=== PATIENT | male | born 1955 | race Caucasian/White ===

== ENCOUNTER 2016-11-24 08:47 | Inpatient (IN) | payer MEDICARE, BC ==
[2016-11-21 16:12] VITALS: BMI 28.2
[2016-11-24] VITALS (19 sets, daily range): BP systolic 118–145; BP diastolic 59–77; PULSE 73–96; RESP 6–73; Ht 170.2 cm; Wt 80.6 kg
[~2016-11-24] VITALS: Ht 170.2 cm; Wt 80.6 kg
[~2016-11-24 08:47] MED LIST: ATOR40TA68 PO; GABA300C PO; LISI10TA2 PO; METF500T4 PO
[2016-11-24] MEDS ORDERED: CEFAZOLIN 2 GM/50 ML (PMX) 50 ML IVPB SCH (09:30)
[2016-11-24] MEDS ORDERED: LACTATED RINGER'S 1,000 ML IV* SCH (09:30)
[2016-11-24] MEDS ORDERED: LIDOCAINE 2%/EPI 30 ML INJ ONE (11:18)
[2016-11-24] MEDS ORDERED: GELATIN SIZE 100 SPONGE ONE (11:18)
[2016-11-24] MEDS ORDERED: POLYMYXIN/BACITRACIN 1L IRRIG ONE (11:18)
[2016-11-24] MEDS ORDERED: ROCURONIUM 50 MG INJ ONE (11:35)
[2016-11-24] MEDS ORDERED: PROPOFOL 20 ML ONE (11:35)
[2016-11-24] MEDS ORDERED: SUCCINYLCHOLINE CHLORIDE 100 MG/5 ML SYG IV ONE (11:35)
[2016-11-24] MEDS ORDERED: MIDAZOLAM 1 MG/ML 2 ML INJ ONE (11:36)
[2016-11-24] MEDS ORDERED: HYDROmorphONE 2 MG/ML SYG ONE (11:36)
[2016-11-24] MEDS ORDERED: METOCLOPRAMIDE 10 MG INJ ONE (11:36)
--- NOTE | 2016-11-24 11:39 | HPN ---
Date/Time of Note Date/Time of Note DATE: 11/24/16 TIME: 11:39 Interval H&P Admission Note Pt. seen H&P reviewed: No system changes ADRIEL TREJO MD Nov 24, 2016 11:39
[2016-11-24] MEDS ORDERED: CEFAZOLIN 1 GM INJ ONE (11:44)
[2016-11-24] MEDS ORDERED: THROMBIN 5000 UNIT VIAL ONE ×2 (12:43→14:47)
[2016-11-24] MEDS ORDERED: EPHEDrine SULFATE 50 MG/5 ML SYG ONE (15:15)
[2016-11-24] MEDS ORDERED: METOCLOPRAMIDE 10 MG INJ IV PRN (15:30)
[2016-11-24] MEDS ORDERED: HYDROCODONE/APAP (5/325) TAB PO PRN ×3 (15:30→22:00)
[2016-11-24] MEDS ORDERED: PROCHLORPERAZINE 10 MG TAB PO PRN (15:30)
[2016-11-24] MEDS ORDERED: HYDROmorphONE (0.2 MG/ML) 10ML SYG IV PRN ×3 (15:30)
[2016-11-24] MEDS ORDERED: OXYCODONE/ACETAMINOPHEN (5/325) TAB PO PRN ×2 (15:30)
[2016-11-24] MEDS ORDERED: NALOXONE (0.4 MG/ML) INJ IV PRN (15:30)
[2016-11-24] MEDS ORDERED: MEPERIDINE 25 MG INJ IV PRN (15:30)
[2016-11-24] MEDS ORDERED: HYDROmorphONE 1 MG/ML SYG IV PRN ×3 (15:30→22:00)
[2016-11-24] MEDS ORDERED: ONDANSETRON 4 MG INJ IV PRN ×2 (15:30)
[2016-11-24] MEDS ORDERED: DIPHENHYDRAMINE 50 MG INJ IV PRN (15:30)
[2016-11-24] MEDS ORDERED: NACL 0.9% 3 ML SYG IV SCH (15:30)
--- NOTE | 2016-11-24 15:54 | OPR ---
Date/Time of Note Date/Time of Note DATE: 11/24/16 TIME: 15:44 Operative Report Free Text/Dictation DATE OF OPERATION: 11/24/2016 PREOPERATIVE DIAGNOSES: 1. Left sided L4-L5 spinal stenosis with L5 radiculopathy 2. Left sided L5-S1 spinal stenosis with S1 radiculopathy POSTOPERATIVE DIAGNOSES: 1. Left sided L4-L5 lateral recess stenosis with L5 radiculopathy 2. Left sided L5-S1 lateral recess stenosis with S1 radiculopathy OPERATION PERFORMED: 1. Left L4-L5 yumiko-laminectomy, medial facetectomy, and foraminotomy 2. Left L5-S1 yumiko-laminectomy, medial facetectomy, and foraminotomy SURGEON: Adriel Trejo MD DIGITAL MEASUREMENT ADVISOR: Zev Martinez MD ANESTHESIA: General endotracheal ESTIMATED BLOOD LOSS: 150 mL SURGICAL INDICATION: The patient is a 61 year-old male who presents with a several year history of worsening left lower extremity pain and weakness with left sided L5 and S1 radiculopathy. He was found to have left sided lateral recess stenosis at L4-L5 and L5-S1 which correlated well with his symptoms. The patient had failed conservative treatment. Risks, benefits, and alternatives to a left sided L5-S1 and L4-5 microdecompression were explained to the patient and they wished to proceed. Risks explained included but were not exclusive of bleeding, infection, cauda equina syndrome, nerve injury, dural tear, iatrogenic instability requiring fusion, recurrent disc herniation, fracture, vascular injury, bowel injury, stroke, heart attack and pulmonary embolism. DESCRIPTION OF TECHNIQUE: The patient was identified in the preoperative area and taken to the operating room. Rapid induction of general endotracheal anesthesia was performed. The patient was given 2 g of cefazolin for prophylaxis. The patient was then placed in the prone position on the Mark frame on a Rashel flat top table with all prominences well padded. The back was prepped and draped in the usual sterile manner. Using a spinal needle and intraoperative fluoroscopy, the appropriate level was clearly identified (L4-L5) . The skin was injected using 0.25% Marcaine with epinephrine. Longitudinal midline incision was then created using a 10 blade. Further dissection through soft tissue was performed using electrocautery down to the left spinous processes .Dissection was taken down the lamina and over the facet joint capsule. A self-retaining retractor was applied. Again, intraoperative fluoroscopy confirmed the level. The high-speed bur was used to thin the left L4 lamina. Kerrison rongeurs were then used to resect a portion of the lamina, and a portion of the medial facet and the bone overlying the foramen. Ligamentum flavum was also resected using the Kerrison rongeurs. Care was taken to protect the thecal sac throughout the decompressive procedure. Palpation with a ball-tip probe did not reveal any further stenosis in the central, subarticular, or foraminal areas. The left L4 and L5 pedicles were palpated using a anita to ensure a pedicle to pedicle decompression. The exiting L4 and traversing L5 nerve root was directly visualized and noted to be decompressed. The cephalad and caudad extent of the decompression were also confirmed using ball-tip probes and intraoperative fluoroscopy. The disc was noted to be hard and no significant soft herniations were noted. We then focused our attention on the left sided L5-S1 decompression procedure. We extended our incision distally sing a 10 blade. Further dissection through soft tissue was performed using electrocautery down to the left L5 spinous process. Dissection was taken down the left lamina and over the facet joint capsule. A self-retaining retractor was applied. Again, intraoperative fluoroscopy confirmed the level. The microscope was brought into use for microdissection. The high-speed bur was used to thin the left L5 lamina. Kerrison rongeurs were then used to resect the L5 lamina, and a portion of the medial facet and the bone overlying the foramen. Ligamentum flavum was also resected using the Kerrison rongeurs. Care was taken to protect the thecal sac throughout the decompressive procedure. Palpation with a ball-tip probe did not reveal any further stenosis in the central, subarticular, or foraminal areas. The left L5 and S1 pedicles were palpated using a anita to ensure a pedicle to pedicle decompression. The exiting left L5 and traversing S1 nerve root was directly visualized and noted to be decompressed. The cephalad and caudad extent of the decompression were also confirmed using ball-tip probes and intraoperative fluoroscopy. Meticulous attention was then paid towards hemostasis using FloSeal, and a bipolar. Care was taken to remove all FloSeal prior to wound closure. The fascia was then closed using 1 Vicryl in an interrupted fashion. Subcutaneous tissue was closed using 2-0 Vicryl in an interrupted fashion. The skin was closed using a running 4-0 Monocryl stitch. The wound was dressed using Dermabond and a 4x4 sterile gauze. The patient was returned to the supine position. He was extubated immediately postoperatively and taken to the recovery room in stable condition. Complications: None Surgeon see signature line Estimated Blood Loss: 100 - 150 ml's Transfusion Required: no Specimen: none Complications: no Pt Condition Post Procedure: stable Disposition: PACU ADRIEL TREJO MD Nov 24, 2016 15:54
[2016-11-24] MEDS: CEFAZOLIN 1 GM/50 ML (PMX) 50 ML IVPB SCH ×2 (18:03→23:38)
--- NOTE | 2016-11-24 18:27 | CONS ---
Date/Time of Note Date/Time of Note DATE: 11/24/16 TIME: 18:19 Assessment/Plan Assessment/Plan Problems: (1) NAFLD (nonalcoholic fatty liver disease) Status: Chronic Comment: Noted. Avoid any type of hepatotoxic agents carefully. Please assume that his ability to metabolize Tylenol be somewhat limited and therefore his maximum daily dose should not exceed 2 g (2) Diabetes mellitus type 2 in nonobese Status: Chronic Comment: No apparent obvious complications of this. Continue metformin (3) Essential hypertension Status: Chronic Comment: Continue ALEXANDRE inhibitor therapy (4) Hyperlipidemia due to type 2 diabetes mellitus Status: Chronic Comment: Continue statin therapy (5) Former moderate cigarette smoker (10-19 per day) Status: Chronic Comment: Noted. (6) COPD (chronic obstructive pulmonary disease) Status: Chronic Comment: Smoking-related lung disease. Presently not an impediment to care Qualifiers: Qualified Code: J44.9 - Chronic obstructive pulmonary disease, unspecified COPD type (7) Lumbar disc disease Status: Chronic Comment: Stable postop (8) S/P lumbar microdiscectomy Onset Date: ~ 11/24/2016 Status: Acute Comment: Stable postoperatively Consultation Date/Type/Reason Admit Date/Time Nov 24, 2016 at 16:13 Date of Consultation: Nov 24, 2016 Type of Consultation: Internal medicine Reason for Consultation Postoperative assistance Referring Provider: ADRIEL TREJO MD Hx of Present Illness 61-year-old male who developed symptoms of radiculopathy abruptly July 31 of this year. He was brought into the hospital after clearance by his primary care nurse practitioner. He is undergone surgery reports that his left leg symptoms are already improved significantly. Constitutional: no complaints Eyes: no complaints ENT: no complaints Respiratory: no complaints Cardiovascular: no complaints Gastrointestinal: no complaints Genitourinary: no complaints Musculoskeletal: no complaints Skin: no complaints Neurologic: no complaints Endocrine: no complaints Psychological: nl mood/affect, no complaints Past Medical History 1) diabetes mellitus type 2, 2) essential hypertension, 3) hyperlipidemia, 4) history of tobacco abuse, 5) COPD, 6) lumbar disc disease with left-sided sciatica 7) nonalcoholic fatty liver disease with stage II fibrosis based on liver biopsy 2016, 8) gastroesophageal reflux disease Medications; metformin 500 every afternoon; gabapentin 300 3 times daily; atorvastatin 20 mg daily; Robaxin 500 mg twice daily; omeprazole 40 mg daily; lisinopril 10 mg daily Allergies; no known drug allergies Medical History: diabetes, high cholesterol, hypertension, other (COPD) Past Surgical History 1) status post anterior cervical discectomy and fusion C3-C7 with iliac crest bone graft 1991, 2) status post right rotator cuff repair 1999, 3) status post left olecranon spur removal, 4) status post left hand trigger finger release 5) status post cataract surgery Family History Significant Family History: diabetes, hypertension Social History Alcohol Use: other (Previous has now discontinued) Smoking Status: Former smoker (With smoking 2 years ago) Drug Use: none Other Social History 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 lives with spouse. Exam/Review of Systems Vital Signs Vitals Vital Signs Date Time Temp Pulse Resp B/P Pulse Ox O2 Delivery O2 Flow Rate FiO2 11/24/16 17:13 98.1 94 18 130/69 95 Nasal Cannula Exam Constitutional: alert, oriented Head: atraumatic, normocephalic Eyes: EOMI, PERRL, nl conjunctiva, nl lids, nl sclera ENMT: mucosa pink and moist, nl external ears & nose, nl lips & teeth, nl nasal mucosa & septum Neck: non-tender, supple Respiratory: clear to auscultation, normal air movement Cardiovascular: nl pulses, regular rate and rhythm Gastrointestinal: nl liver, spleen, non-tender, soft Musculoskeletal: nl extremities to inspection Extremities: normal pulses Neurological: 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 II-XII intact, nl mental status, nl speech, nl strength Results Results 24 hrs Laboratory Tests Test 11/24/16 09:32 11/24/16 15:43 Bedside Glucose 106 124 Medications Medications Current Medications Lactated Ringer's (Lr) 1,000 ml @ 20 mls/hr Q24H IV* ; Start 11/24/16 at 09:30 ; Stop 11/26/16 at 11:29 Acetaminophen/ Hydrocodone Bitart ([place] (5/325)) 1 tab Q4H PRN PO PAIN LEVEL 1 -5; Start 11/24/16 at 15:30; Stop 11/24/16 at 20:00 Acetaminophen/ Hydrocodone Bitart 2 tab 2 tab Q4H PRN PO PAIN LEVEL 6-10; Start 11/24/16 at 15:30; Stop 11/24/16 at 20:00 Cefazolin Sodium (Ancef 1 Gm/50 ml (Pmx)) 50 ml @ 100 mls/hr Q6 IVPB Last administered on 11/24/16t 18:03; Admin Dose 100 MLS/HR; Start 11/24/16 at 18:00 ; Stop 11/25/16 at 12:29 Prochlorperazine (Compazine) 10 mg Q4H PRN PO NAUSEA AND/OR VOMITING; Start at 15:30; Stop 11/24/16 at 20:00 Ondansetron HCl (Zofran Inj) 4 mg Q6H PRN IV NAUSEA AND/OR VOMITING; Start at 15:30; Stop 11/24/16 at 20:00 Naloxone HCl (Narcan) 0.2 mg Q2M PRN IV RR 8 BREATHS/MIN OR LESS; Start at 15:30; Stop 11/24/16 at 20:00 Hydromorphone HCl (Dilaudid) 0.5 mg Q4H PRN IV PAIN; Start 11/24/16 at 15:30; Stop 11/24/16 at 20:00 ARTEMIO AREVALO MD Nov 24, 2016 18:27
[2016-11-24] MEDS ORDERED: metFORMIN 500 MG TAB PO SCH (20:30)
[2016-11-24] MEDS ORDERED: GLUCOSE GEL 15 GRAM TUBE BUCCAL PRN (20:30)
[2016-11-24] MEDS ORDERED: GLUCOSE GEL 15 GRAM TUBE PO PRN ×2 (20:30)
[2016-11-24] MEDS ORDERED: GLUCAGON 1 MG INJ IM PRN (20:30)
[2016-11-24] MEDS ORDERED: DEXTROSE 50% 50 ML SYRINGE IV PRN ×2 (20:30)
[2016-11-24] MEDS ORDERED: ATORVASTATIN 40 MG TAB PO SCH (21:00)
[2016-11-24] MEDS: GABAPENTIN 300 MG CAP PO SCH (21:29)
[2016-11-24] MEDS: metFORMIN 500 MG TAB PO SCH (21:30)
[2016-11-24] MEDS: ATORVASTATIN 20 MG TAB PO SCH (21:30)
[2016-11-24] MEDS ORDERED: TAMSULOSIN (SR) 0.4 MG CAP PO ONE (22:00)
[2016-11-25] MEDS: HYDROCODONE/APAP (5/325) TAB PO PRN ×2 (01:47→05:48)
[2016-11-25 05:28] LABS: HEMATOCRIT 35.6 % (42.0-52.0); HEMOGLOBIN 11.8 g/dl (14.0-18.0)
[2016-11-25] MEDS: CEFAZOLIN 1 GM/50 ML (PMX) 50 ML IVPB SCH ×2 (05:39→12:39)
[2016-11-25 05:52] LABS: CALCIUM 9.2 mg/dl (8.4-10.2); CREATININE 0.93 mg/dl (0.61-1.24)
[2016-11-25 08:06] VITALS: BP 105/55; RESP 16
[2016-11-25] MEDS: LISINOPRIL 10 MG TAB PO SCH (08:40)
[2016-11-25] MEDS: metFORMIN 500 MG TAB PO SCH (09:17)
[2016-11-25] MEDS: GABAPENTIN 300 MG CAP PO SCH ×2 (09:17→20:26)
--- NOTE | 2016-11-25 10:53 | RADRPT ---
PROCEDURE: Intraoperative imaging of the lumbar spine with fluoroscopy. CLINICAL INDICATION: Back pain. Intraoperative. TECHNIQUE: 6 images of the lumbar spine were obtained in the operating room with an image intensif ier. No radiologist was in attendance. Fluoroscopy time is 11.7 seconds. COMPARISON: No prior study is available for comparison. FINDINGS: Images demonstrate posterior surgical instruments overlying the lumbar spine. IMPRESSION: 1. Intraoperative imaging of the lumbar spine. RPTAT: QQ .Ferny Harris MD, MD Date Time Electronically viewed and signed by .Ferny Harris MD, MD on 11/25/2016 10:53 .R/
--- NOTE | 2016-11-25 11:54 | PDOCDIS ---
Discharge Instructions CONDITION Patient Condition: Good HOME CARE INSTRUCTIONS: Diet Instructions: RegularSpecial Diet: REGULAR ACTIVITY: Activity Restrictions: Avoid heavy lifting Avoid Heavy Housework Bathing Restrictions: Shower FOLLOW UP/APPOINTMENTS Follow-up Plan Follow-up in 2 weeks with ADRIEL Panchal MD Nov 25, 2016 11:54
[2016-11-25] MEDS ORDERED: SOD CHLORIDE 0.9% 1,000 ML IV ONE (12:00)
[2016-11-25] MEDS: METHOCARBAMOL 750 MG TAB PO PRN ×2 (12:24→20:30)
[2016-11-25] MEDS ORDERED: ONDANSETRON 4 MG INJ IV PRN (12:30)
[2016-11-25 12:53] VITALS: BP 121/59; PULSE 100; RESP 18
[2016-11-25] MEDS ORDERED: ACETAMINOPHEN 1000MG/100ML IV 100 ML IVPB ONE (13:30)
--- NOTE | 2016-11-25 13:50 | CONS ---
Date/Time of Note Date/Time of Note DATE: 11/25/16 TIME: 13:47 Assessment/Plan Assessment/Plan Chief Complaint/Hosp Course 61-year-old male who developed symptoms of radiculopathy abruptly July 31 of this year. He was brought into the hospital after clearance by his primary care nurse practitioner. He is undergone surgery reports that his left leg symptoms are already improved significantly. Problems: (1) Postsurgical fever Status: Acute Comment: He has had rather interesting fevers. He has no specific source identifiable and I am somewhat gratified that his sugars have not risen appreciably. In the setting of an infection I might have expected a higher sugars. Regardless he will be cultured we will check a chest x-ray he will be using the incentive spirometer more. Discharge will be held for 1 day well in follow-up and make sure there is nothing more insidious going on. At this point I do not see an indication to initiate him on broad-spectrum antibiotics (2) COPD (chronic obstructive pulmonary disease) Status: Chronic Comment: Repeat chest x-ray Qualifiers: COPD type: unspecified COPD Qualified Code: J44.9 - Chronic obstructive pulmonary disease, unspecified COPD type (3) Essential hypertension Status: Chronic Comment: Adequate control. (4) S/P lumbar microdiscectomy Onset Date: ~ 11/24/2016 Status: Acute Comment: Noted. Please note he is somewhat dehydrated at this point time (5) Diabetes mellitus type 2 in nonobese Status: Chronic Comment: Adequate control Consultation Date/Type/Reason Admit Date/Time Nov 24, 2016 at 16:13 Initial Consult Date 11/24/16 Type of Consultation: Internal medicine Reason for Consultation Postoperative assistance Referring Provider: ADRIEL TREJO MD 24 HR Interval Summary Constitutional: diaphoresis, febrile Detailed Summary Respiratory: no complaints (As cough or shortness of breath) Cardiovascular: no complaints Gastrointestinal: no complaints Neurologic: no complaints Exam/Review of Systems Vital Signs Vitals Vital Signs Date Time Temp Pulse Resp B/P Pulse Ox O2 Delivery O2 Flow Rate FiO2 11/25/16 13:04 100.4 11/25/16 12:53 100 18 121/59 100 Room Air Intake and Output 11/24/16 11/24/16 11/25/16 15:00 23:00 07:00 Intake Total 1400 ml 170 ml 1250 ml Output Total 150 ml 70 ml 1730 ml Balance 1250 ml 100 ml -480 ml Exam Constitutional: alert, oriented Respiratory: clear to auscultation, normal air movement Cardiovascular: nl pulses, regular rate and rhythm Extremities: normal pulses Results Result Diagram: 11/25/16 0431 11/25/16 0431 Results 24 hrs Laboratory Tests Test 11/24/16 15:43 11/25/16 04:31 11/25/16 09:16 11/25/16 12:49 Bedside Glucose 124 179 155 Hemoglobin 11.8 L Hematocrit 35.6 L Sodium Level 137 Potassium Level 4.0 Chloride Level 102 Carbon Dioxide Level 29 Anion Gap 10 Blood Urea Nitrogen 11 Creatinine 0.93 Glucose Level 152 Calcium Level 9.2 Medications Medications Current Medications Lactated Ringer's (Lr) 1,000 ml @ 20 mls/hr Q24H IV* ; Start 11/24/16 at 09:30 ; Stop 11/26/16 at 11:29 Gabapentin (Neurontin) 300 mg BID PO Last administered on 11/25/16 09:17; Admin Dose 300 MG; Start 11/24/16 at 21:00 Lisinopril (Zestril) 10 mg DAILY PO ; Start 11/25/16 at 09:00 Miscellaneous Information 1 ea NOTE XX ; Start 11/24/16 at 20:30 Glucose (Glutose) 15 gm Q15M PRN PO DECREASED GLUCOSE; Start 11/24/16 at 20:30 Glucose (Glutose) 22.5 gm Q15M PRN PO DECREASED GLUCOSE; Start 11/24/16 at 20: 30 Dextrose (D50w Syringe) 25 ml Q15M PRN IV DECREASED GLUCOSE; Start 11/24/16 at 20:30 Dextrose (D50w Syringe) 50 ml Q15M PRN IV DECREASED GLUCOSE; Start 11/24/16 at 20:30 Glucagon (Glucagen) 1 mg Q15M PRN IM DECREASED GLUCOSE; Start 11/24/16 at 20:30 Glucose (Glutose) 15 gm Q15M PRN BUCCAL DECREASED GLUCOSE; Start 11/24/16 at 20 :30 Atorvastatin Calcium (Lipitor) 20 mg QHS PO Last administered on 11/24/16 21: 30; Admin Dose 20 MG; Start 11/24/16 at 21:15 Acetaminophen/ Hydrocodone Bitart ([place] (5/325)) 1 tab Q4H PRN PO MODERATE PAIN LEVEL 4-6; Start 11/24/16 at 22:00 Acetaminophen/ Hydrocodone Bitart ([place] (5/325)) 2 tab Q4H PRN PO SEVERE PAIN LEVEL 7-10 Last administered on 11/25/16 05:48; Admin Dose 2 TAB; Start at 22:00 Hydromorphone HCl (Dilaudid) 0.5 mg Q4H PRN IV PAIN LEVEL 1-5; Start 11/24/16 at 22:00 Hydromorphone HCl 1 mg 1 mg Q4H PRN IV SEVERE PAIN LEVEL 7-10; Start 11/24/16 at 22:00 Sodium Chloride (NS) 1,000 ml @ 250 mls/hr Q4H ONCE IV Last administered on 12:24; Admin Dose 250 MLS/HR; Start 11/25/16 at 12:00; Stop 11/25/16 at 15:59 Methocarbamol (Robaxin) 750 mg Q8H PRN PO MUSCLE SPASMS Last administered on 12:24; Admin Dose 750 MG; Start 11/25/16 at 12:00 Ondansetron HCl 4 mg 4 mg Q4H PRN IV NAUSEA AND/OR VOMITING Last administered on 11/25/16 12:39; Admin Dose 4 MG; Start 11/25/16 at 12:30 Acetaminophen (Ofirmev 1000mg/ 100ml Iv) 100 ml @ 400 mls/hr ONCE ONCE IVPB Last administered on 11/25/16 13:20; Admin Dose 400 MLS/HR; Start 11/25/16 at 13:30; Stop 11/25/16 at 13:44 ARTEMIO AREVALO MD Nov 25, 2016 13:50
[2016-11-25] MEDS ORDERED: SOD CHLORIDE 0.9% 1,000 ML IV SCH (14:00)
--- NOTE | 2016-11-25 14:09 | RADRPT ---
PROCEDURE: XR Chest. CLINICAL INDICATION: Cough and fever. TECHNIQUE: Single frontal view. COMPARISON: None. FINDINGS: The lungs are clear. The heart size is normal. There is no pleural effusion. There is no pneumothorax. IMPRESSION: 1. Normal chest radiograph. RPTAT: QQ .Ferny Harris MD, Date Time Electronically viewed and signed by .Ferny Harris MD, on 11/25/2016 14:09 .R/
[2016-11-25 14:25] LABS: BASOPHILS % 0.2 % (0.0-2.0); EOSINOPHILS % 0.2 % (0.0-7.0); HEMATOCRIT 35.5 % (42.0-52.0); HEMOGLOBIN 12.2 g/dl (14.0-18.0); LYMPHOCYTES # 1.8 10^3/ul (0.8-2.9); LYMPHOCYTES % 14.2 % (15.0-51.0); MEAN CORPUSCULAR HEMOGLOBIN 31.9 pg (29.0-33.0); MEAN CORPUSCULAR HGB CONC 34.4 g/dl (32.0-37.0); MEAN CORPUSCULAR VOLUME 92.7 fl (82.0-101.0); MONOCYTE # 1.1 10^3/ul (0.3-0.9); MONOCYTES % 8.5 % (0.0-11.0); NEUTROPHIL # 9.9 10^3/ul (1.6-7.5); NEUTROPHILS % 76.3 % (39.0-77.0); PLATELET COUNT 168 10^3/UL (140-415); RED BLOOD COUNT 3.83 10^6/ul (4.70-6.10); RED CELL DISTRIBUTION WIDTH 12.3 % (11.5-14.5); WHITE BLOOD COUNT 12.9 10^3/ul (4.8-10.8)
[2016-11-25 14:31] LABS: ADD UMIC NO; UR ASCORBIC ACID NEGATIVE (NEGATIVE); UR BILIRUBIN (Dip) NEGATIVE (NEGATIVE); UR BLOOD (Dip) NEGATIVE (NEGATIVE); UR CLARITY CLEAR (CLEAR); UR COLOR STRAW (YELLOW); UR GLUCOSE (Dip) 1+ mg/dL (NEGATIVE); UR KETONES (Dip) NEGATIVE (NEGATIVE); UR LEUKOCYTE ESTERASE (Dip) NEGATIVE Leu/ul (NEGATIVE); UR NITRITE (Dip) NEGATIVE (NEGATIVE); UR SPECIFIC GRAVITY (Dip) 1.006 (1.003-1.030); UR TOTAL PROTEIN (Dip) NEGATIVE (NEGATIVE); UR UROBILINOGEN (Dip) NEGATIVE (NEGATIVE)
[2016-11-25 16:07] VITALS: BP 110/70; RESP 18
[2016-11-25 19:14] VITALS: BP 101/57; RESP 18
[2016-11-25] MEDS: ATORVASTATIN 20 MG TAB PO SCH (20:26)
--- NOTE | 2016-11-25 20:44 | PN ---
DATE: 11/25/2016 Ortho Spine Daily Progress Note SUBJECTIVE: Patient is a pleasant 61 year-old male who is currently postop day number 1, status post left-sided L4-S1 decompression. Patient had no acute overnight events. He was unable to be cleared by Physical Therapy today, as he had an episode of orthostatic hypotension. His H and H has been stable. He complains of some nausea with the p.o. [place]. He reports significant improvement in his left-sided leg pain. He denies any significant motor or sensory deficits in the left lower extremity. This afternoon, he did have a spike in temperature at 101.8. He has currently been afebrile since, as his fever has responded to IV Tylenol. The Medicine service is helping in management of this patient. He currently denies any chest pain or shortness of breath. A chest x-ray, urine culture, UA, and blood cultures have been ordered by the Medicine team. He currently reports that he is feeling significantly improved with the IV Tylenol and discontinuation of the [place]. He otherwise has no complaints. OBJECTIVE: His drain put out 100 mL in the past 24 hours. His drain was removed today at bedside. PHYSICAL EXAMINATION: GENERAL: He is alert and oriented x3, in no acute distress. SPINE: Examination, his posterior midline incision is clean, dry, and intact. He has 5/5 strength in the bilateral hip flexors, knee extensors, tib ant, gastrocnemius soleus, and EHL. Gross sensation to light touch is intact in the L3-S1 nerve root distribution. ASSESSMENT/PLAN: Patient is doing well postop day number 1, status post left-sided L4-S1 decompression. At this time we will continue to monitor him for another 24 hours, given his spike in fevers. We will follow up his chest x-ray and Cxs and appreciate Medicine recs. We will continue to have Physical Therapy work with him. We have given him a 1 L bolus of fluid, given his episode of orthostatic hypotension. His H and H has been stable. We will continue to monitor this patient closely. If he remains afebrile and clears Physical Therapy, we will discharge him tomorrow after working with Physical Therapy. Dictated By: Sae Beltran MD /jake/sue /Document#: [id number] MTDD
[2016-11-26 00:28] VITALS: BP 127/65; RESP 18
[2016-11-26] MEDS: ACETAMINOPHEN 1000MG/100ML IV 100 ML IVPB PRN ×2 (01:01→11:33)
[2016-11-26 07:52] VITALS: BP 131/75; RESP 19
[2016-11-26] MEDS: GABAPENTIN 300 MG CAP PO SCH ×2 (08:19→21:09)
[2016-11-26] MEDS: LISINOPRIL 10 MG TAB PO SCH (08:19)
[2016-11-26] MEDS: METHOCARBAMOL 750 MG TAB PO PRN ×2 (08:19→17:40)
[2016-11-26] MEDS: metFORMIN 500 MG TAB PO SCH (08:19)
--- NOTE | 2016-11-26 17:43 | CONS ---
Date/Time of Note Date/Time of Note DATE: 11/26/16 TIME: 17:39 Assessment/Plan Assessment/Plan Chief Complaint/Hosp Course 61-year-old male who developed symptoms of radiculopathy abruptly July 31 of this year. He was brought into the hospital after clearance by his primary care nurse practitioner. He is undergone surgery reports that his left leg symptoms are already improved significantly. Problems: (1) S/P lumbar microdiscectomy Onset Date: ~ 11/24/2016 Status: Acute Comment: He has post op fever, but clinically looks excellent! Observe one more day and if afebrile okay for home treatmnet (2) Postsurgical fever Status: Acute Comment: As above. The patient relates a remote history of at EVERY epidural post treatment fevers, as high as 102. None pre op, observe (3) Hyperlipidemia due to type 2 diabetes mellitus Status: Chronic Comment: statin treatment (4) NAFLD (nonalcoholic fatty liver disease) Status: Chronic Comment: noted, doubt thia as cause of fever (5) Diabetes mellitus type 2 in nonobese Status: Chronic Comment: good control (6) Essential hypertension Status: Chronic Comment: controlled (7) COPD (chronic obstructive pulmonary disease) Status: Chronic Comment: stable and compensated Qualifiers: COPD type: unspecified COPD Qualified Code: J44.9 - Chronic obstructive pulmonary disease, unspecified COPD type Consultation Date/Type/Reason Admit Date/Time Nov 24, 2016 at 16:13 Initial Consult Date 11/24/16 Type of Consultation: Internal medicine Reason for Consultation Post op assistance Referring Provider: ADRIEL TREJO MD 24 HR Interval Summary Constitutional: febrile Detailed Summary ENT: no complaints Respiratory: no complaints Cardiovascular: no complaints Gastrointestinal: no complaints Genitourinary: no complaints Exam/Review of Systems Vital Signs Vitals Vital Signs Date Time Temp Pulse Resp B/P Pulse Ox O2 Delivery O2 Flow Rate FiO2 11/26/16 07:52 99.0 81 19 131/75 98 11/25/16 12:53 Room Air Intake and Output 11/25/16 11/25/16 11/26/16 15:00 23:00 07:00 Intake Total 150 ml 1900 ml 800 ml Output Total 1000 ml 1050 ml Balance 150 ml 900 ml -250 ml Exam Vibrant male in no obvious distress Constitutional: alert, oriented, well developed ENMT: mucosa pink and moist, nl external ears & nose, nl lips & teeth, nl nasal mucosa & septum Neck: non-tender, supple Respiratory: clear to auscultation, normal air movement Cardiovascular: nl pulses, regular rate and rhythm Extremities: normal pulses Results Result Diagram: 11/25/16 1407 11/25/16 0431 Medications Medications Current Medications Gabapentin (Neurontin) 300 mg BID PO Last administered on 11/26/16 08:19; Admin Dose 300 MG; Start 11/24/16 at 21:00 Lisinopril (Zestril) 10 mg DAILY PO Last administered on 11/26/16 08:19; Admin Dose 10 MG; Start 11/25/16 at 09:00 Miscellaneous Information 1 ea NOTE XX ; Start 11/24/16 at 20:30 Glucose (Glutose) 15 gm Q15M PRN PO DECREASED GLUCOSE; Start 11/24/16 at 20:30 Glucose (Glutose) 22.5 gm Q15M PRN PO DECREASED GLUCOSE; Start 11/24/16 at 20: 30 Dextrose (D50w Syringe) 25 ml Q15M PRN IV DECREASED GLUCOSE; Start 11/24/16 at 20:30 Dextrose (D50w Syringe) 50 ml Q15M PRN IV DECREASED GLUCOSE; Start 11/24/16 at 20:30 Glucagon (Glucagen) 1 mg Q15M PRN IM DECREASED GLUCOSE; Start 11/24/16 at 20:30 Glucose (Glutose) 15 gm Q15M PRN BUCCAL DECREASED GLUCOSE; Start 11/24/16 at 20 :30 Atorvastatin Calcium (Lipitor) 20 mg QHS PO Last administered on 11/25/16 20: 26; Admin Dose 20 MG; Start 11/24/16 at 21:15 Acetaminophen/ Hydrocodone Bitart ([place] (5/325)) 1 tab Q4H PRN PO MODERATE PAIN LEVEL 4-6; Start 11/24/16 at 22:00 Acetaminophen/ Hydrocodone Bitart ([place] (5/325)) 2 tab Q4H PRN PO SEVERE PAIN LEVEL 7-10 Last administered on 11/25/16 05:48; Admin Dose 2 TAB; Start at 22:00 Hydromorphone HCl (Dilaudid) 0.5 mg Q4H PRN IV PAIN LEVEL 1-5; Start 11/24/16 at 22:00 Hydromorphone HCl (Dilaudid) 1 mg Q4H PRN IV SEVERE PAIN LEVEL 7-10; Start at 22:00 Methocarbamol (Robaxin) 750 mg Q8H PRN PO MUSCLE SPASMS Last administered on 08:19; Admin Dose 750 MG; Start 11/25/16 at 12:00 Ondansetron HCl 4 mg 4 mg Q4H PRN IV NAUSEA AND/OR VOMITING Last administered on 11/25/16 12:39; Admin Dose 4 MG; Start 11/25/16 at 12:30 Acetaminophen (Ofirmev 1000mg/ 100ml Iv) 100 ml @ 400 mls/hr Q12H PRN IVPB PAIN Last administered on 11/26/16 11:33; Admin Dose 400 MLS/HR; Start at 20:00 Acetaminophen (Tylenol Tab) 500 mg Q6H PRN PO PAIN AND OR ELEVATED TEMP; Start 11/26/16 at 17:30; Status ARTEMIO SCHWARTZ MD Nov 26, 2016 17:43
[2016-11-26] MEDS: ACETAMINOPHEN 500 MG TAB PO PRN (18:19)
[2016-11-26 19:19] VITALS: BP 134/70; RESP 18
[2016-11-26] MEDS: ATORVASTATIN 20 MG TAB PO SCH (21:09)
[2016-11-27] MEDS: ACETAMINOPHEN 500 MG TAB PO PRN ×2 (00:16→06:14)
[2016-11-27 02:15] VITALS: BP 153/81; RESP 20
--- NOTE | 2016-11-27 04:30 | PN ---
DATE: 11/26/2016 SUBJECTIVE DATA: Patient is currently postop day number 2, status post left-sided L4-S1 decompression. He was cleared by Physical Therapy today. He had an episode of orthostatic hypotension yesterday, which responded well to a 1 L bolus of IV fluids. His discharge is currently being held due to fevers. Yesterday, a chest x-ray was performed, which did not show any evidence of significant infiltrates. A urine culture and blood culture as well as a urinalysis was also performed. His urine and blood culture have been negative to date. His urinalysis has been negative as well. The Medicine team is following the patient as well. He currently reports that he feels well. He reports significant improvement in his leg pain. He also reports subjective improved strength in his left lower extremity. He denies any chest pain. He denies any shortness of breath. OBJECTIVE DATA: His T-max 102 x1, T-current 99.8 degrees. He is otherwise stable. He is satting 98-100 percent on room air. GENERAL: He is alert and oriented x3, in no acute distress. SPINE EXAM: His posterior midline incision is clean, dry, and intact, without erythema or drainage. He has 5/5 strength in his bilateral hip flexors, knee extensors, tib ant, gastrocnemius soleus, and EHL. He has gross sensation to light touch intact in the L3-S1 nerve distributions bilaterally. LABORATORY AND DIAGNOSTIC DATA: [place] [id number]. His hemoglobin and hematocrit are stable. ASSESSMENT: Patient is currently postop day number 2, status post left-sided L4-S1 decompression. PLAN: Patient has been cleared by Physical Therapy. He is neurovascularly intact. However, he continues to spike some fevers. We are currently treating his fevers with Tylenol, which he is responding to. We will continue to manage him closely with the Medicine team. We will observe him over the next 24 hours to ensure resolution of his fevers. We will continue to follow up his cultures. The Medicine team has reordered a CBC and inflammatory labs, including ESR for tomorrow. We will continue to watch this patient closely, in order to better help delineate the cause of his symptoms. We have also encouraged him to use his incentive spirometer to help decrease the risk of atelectasis. We will continue to manage the patient closely during this hospital admission and likely discharge him tomorrow, if he remains afebrile. Dictated By: Sae Beltran MD /jake/sue /Document#: [id number]
[2016-11-27 05:20] LABS: BASOPHILS % 0.4 % (0.0-2.0); EOSINOPHILS # 0.2 10^3/ul (0.0-0.5); EOSINOPHILS % 2.1 % (0.0-7.0); HEMATOCRIT 36.4 % (42.0-52.0); HEMOGLOBIN 12.2 g/dl (14.0-18.0); LYMPHOCYTES # 2.2 10^3/ul (0.8-2.9); LYMPHOCYTES % 21.6 % (15.0-51.0); MEAN CORPUSCULAR HEMOGLOBIN 30.9 pg (29.0-33.0); MEAN CORPUSCULAR HGB CONC 33.5 g/dl (32.0-37.0); MEAN CORPUSCULAR VOLUME 92.2 fl (82.0-101.0); MEAN PLATELET VOLUME 10.5 fl (7.4-10.4); MONOCYTE # 0.9 10^3/ul (0.3-0.9); MONOCYTES % 9.2 % (0.0-11.0); NEUTROPHIL # 6.7 10^3/ul (1.6-7.5); NEUTROPHILS % 66.1 % (39.0-77.0); PLATELET COUNT 170 10^3/UL (140-415); RED BLOOD COUNT 3.95 10^6/ul (4.70-6.10); RED CELL DISTRIBUTION WIDTH 12.1 % (11.5-14.5); WHITE BLOOD COUNT 10.2 10^3/ul (4.8-10.8)
[2016-11-27 05:46] LABS: ALBUMIN 3.8 g/dl (3.3-4.9); ALBUMIN/GLOBULIN RATIO 1.26; BILIRUBIN,INDIRECT 0.7 mg/dl (0-1.1); BILIRUBIN,TOTAL 0.7 mg/dl (0.2-1.3); CALCIUM 9.2 mg/dl (8.4-10.2); CREATININE 0.78 mg/dl (0.61-1.24); POTASSIUM 4.2 mmol/L (3.5-5.1); TOTAL PROTEIN 6.8 g/dl (6.1-8.1)
[2016-11-27 07:55] VITALS: BP 148/72; RESP 19
[2016-11-27] MEDS ORDERED: MAGNESIUM HYDROXIDE 30ML CUP PO PRN (08:30)
--- NOTE | 2016-11-27 08:41 | CONS ---
Date/Time of Note Date/Time of Note DATE: 11/27/16 TIME: 08:38 Assessment/Plan Assessment/Plan Chief Complaint/Hosp Course 61-year-old male who developed symptoms of radiculopathy abruptly July 31 of this year. He was brought into the hospital after clearance by his primary care nurse practitioner. He is undergone surgery reports that his left leg symptoms are already improved significantly. Problems: (1) S/P lumbar microdiscectomy Onset Date: ~ 11/24/2016 Status: Acute Comment: Fever curve coming down with no antibiotic treatment. TOtherwise doing well with rehab. Ok with discharge (2) Postsurgical fever Status: Acute Comment: Fever curve coming down with no antibiotic treatment. This appears to be a benign process, and I am favor of allowing discharge with jone follow up. All cultures negative to date (3) Diabetes mellitus type 2 in nonobese Status: Chronic Comment: Good control, return to outpatient regimen. (4) Essential hypertension Status: Chronic Comment: Good control. Consultation Date/Type/Reason Admit Date/Time Nov 24, 2016 at 16:13 Initial Consult Date 11/24/16 Type of Consultation: Internal medicine Reason for Consultation Post op assistance Referring Provider: ADRIEL TREJO MD 24 HR Interval Summary Constitutional: no complaints Detailed Summary Respiratory: no complaints Cardiovascular: no complaints Gastrointestinal: no complaints Exam/Review of Systems Vital Signs Vitals Vital Signs Date Time Temp Pulse Resp B/P Pulse Ox O2 Delivery O2 Flow Rate FiO2 11/27/16 07:55 99.0 87 19 148/72 98 11/25/16 12:53 Room Air Intake and Output 11/26/16 11/26/16 11/27/16 15:00 23:00 07:00 Intake Total 100 ml 980 ml 650 ml Balance 100 ml 980 ml 650 ml Exam Constitutional: alert, oriented Respiratory: clear to auscultation, normal air movement Cardiovascular: nl pulses, regular rate and rhythm Results Result Diagram: 11/27/16 0424 11/27/16 0424 Results 24 hrs Laboratory Tests Test 11/27/16 04:24 White Blood Count 10.2 # Red Blood Count 3.95 L Hemoglobin 12.2 L Hematocrit 36.4 L Mean Corpuscular Volume 92.2 Mean Corpuscular Hemoglobin 30.9 Mean Corpuscular Hemoglobin Concent 33.5 Red Cell Distribution Width 12.1 Platelet Count 170 Mean Platelet Volume 10.5 H Neutrophils % 66.1 Lymphocytes % 21.6 Monocytes % 9.2 Eosinophils % 2.1 Basophils % 0.4 Nucleated Red Blood Cells % 0.0 Neutrophils # 6.7 Lymphocytes # 2.2 Monocytes # 0.9 Eosinophils # 0.2 Basophils # 0.0 Nucleated Red Blood Cells # 0.0 Erythrocyte Sedimentation Rate 64 H Sodium Level 141 Potassium Level 4.2 Chloride Level 105 Carbon Dioxide Level 28 Anion Gap 12 Blood Urea Nitrogen 10 Creatinine 0.78 Glucose Level 100 # Calcium Level 9.2 Total Bilirubin 0.7 Direct Bilirubin 0.00 Indirect Bilirubin 0.7 Aspartate Amino Transf (AST/SGOT) 29 Alanine Aminotransferase (ALT/SGPT) 35 Alkaline Phosphatase 46 Total Protein 6.8 Albumin 3.8 Globulin 3.00 Albumin/Globulin Ratio 1.26 Medications Medications Current Medications Gabapentin (Neurontin) 300 mg BID PO Last administered on 11/26/16 21:09; Admin Dose 300 MG; Start 11/24/16 at 21:00 Lisinopril (Zestril) 10 mg DAILY PO Last administered on 11/26/16 08:19; Admin Dose 10 MG; Start 11/25/16 at 09:00 Miscellaneous Information 1 ea NOTE XX ; Start 11/24/16 at 20:30 Glucose (Glutose) 15 gm Q15M PRN PO DECREASED GLUCOSE; Start 11/24/16 at 20:30 Glucose (Glutose) 22.5 gm Q15M PRN PO DECREASED GLUCOSE; Start 11/24/16 at 20: 30 Dextrose (D50w Syringe) 25 ml Q15M PRN IV DECREASED GLUCOSE; Start 11/24/16 at 20:30 Dextrose (D50w Syringe) 50 ml Q15M PRN IV DECREASED GLUCOSE; Start 11/24/16 at 20:30 Glucagon (Glucagen) 1 mg Q15M PRN IM DECREASED GLUCOSE; Start 11/24/16 at 20:30 Glucose (Glutose) 15 gm Q15M PRN BUCCAL DECREASED GLUCOSE; Start 11/24/16 at 20 :30 Atorvastatin Calcium (Lipitor) 20 mg QHS PO Last administered on 11/26/16 21: 09; Admin Dose 20 MG; Start 11/24/16 at 21:15 Acetaminophen/ Hydrocodone Bitart ([place] (5/325)) 1 tab Q4H PRN PO MODERATE PAIN LEVEL 4-6; Start 11/24/16 at 22:00 Acetaminophen/ Hydrocodone Bitart ([place] (5/325)) 2 tab Q4H PRN PO SEVERE PAIN LEVEL 7-10 Last administered on 11/25/16 05:48; Admin Dose 2 TAB; Start at 22:00 Hydromorphone HCl (Dilaudid) 0.5 mg Q4H PRN IV PAIN LEVEL 1-5; Start 11/24/16 at 22:00 Hydromorphone HCl (Dilaudid) 1 mg Q4H PRN IV SEVERE PAIN LEVEL 7-10; Start at 22:00 Methocarbamol (Robaxin) 750 mg Q8H PRN PO MUSCLE SPASMS Last administered on 17:40; Admin Dose 750 MG; Start 11/25/16 at 12:00 Ondansetron HCl 4 mg 4 mg Q4H PRN IV NAUSEA AND/OR VOMITING Last administered on 11/25/16 12:39; Admin Dose 4 MG; Start 11/25/16 at 12:30 Acetaminophen (Ofirmev 1000mg/ 100ml Iv) 100 ml @ 400 mls/hr Q12H PRN IVPB PAIN Last administered on 11/26/16 11:33; Admin Dose 400 MLS/HR; Start at 20:00 Acetaminophen (Tylenol Tab) 500 mg Q6H PRN PO PAIN AND OR ELEVATED TEMP Last administered on 11/27/16 06:14; Admin Dose 500 MG; Start 11/26/16 at 17:30 Docusate Sodium (Colace) 100 mg BID PO ; Start 11/27/16 at 09:00 Magnesium Hydroxide (Milk Of Mag) 30 ml DAILY PRN PO CONSTIPATION; Start at 08:30 ARTEMIO AREVALO MD Nov 27, 2016 08:41
[2016-11-27] MEDS ORDERED: DOCUSATE SODIUM 100 MG CAP PO SCH (09:00)
[2016-11-27] MEDS: metFORMIN 500 MG TAB PO SCH (09:05)
[2016-11-27] MEDS: LISINOPRIL 10 MG TAB PO SCH (09:05)
[2016-11-27] MEDS: GABAPENTIN 300 MG CAP PO SCH (09:06)
[2016-11-27] MEDS: METHOCARBAMOL 750 MG TAB PO PRN (09:06)
== END 2016-11-27 10:15 | disposition home or self-care (01) | DRG 517 ==
LOC: SDS 08:47 → REC 16:13 → SDS 16:13 → MS1 17:00
PROVIDERS: ADMIT Orthopaedic Surgery; ATTEND Orthopaedic Surgery
PROC: 01NB0ZZ Release Lumbar Nerve, Open Approach (ICD-10-PCS; principal; 2016-11-24 11:00)
DX: M48.07 Spinal stenosis, lumbosacral region (principal); E11.8 Type 2 diabetes mellitus with unspecified complications; M54.17 Radiculopathy, lumbosacral region; E78.5 Hyperlipidemia, unspecified; Z87.891 Personal history of nicotine dependence; J44.9 Chronic obstructive pulmonary disease, unspecified; R50.82 Postprocedural fever; I95.1 Orthostatic hypotension
CPT/HCPCS: 71010; 72110; 80048; 80053; 81003; 82962; 85014; 85018; 85025; 85651; 86850; 86900; 86901; 87040; 87086; 97116; 97161; 97530; J0131; J0690; J1170; J2250; J2405; J2765; J7030; J7120; J7999